=== PATIENT | female | born 1950 | race Caucasian/White ===

== ENCOUNTER → 2016-11-22 | Outpatient (CLI) | payer OTHER ==
[2016-11-22 18:28] LABS: URINE APPEARANCE CLEAR (CLEAR); URINE BILIRUBIN NEG (NEG); URINE COLOR YELLOW; URINE NITRITE NEG (NEG); URINE SPECIFIC GRAVITY 1.011 (1.000-1.030); UROBILINOGEN NEG (NEG)
[2016-11-22 18:29] LABS: MANUAL MICROSCOPIC REQUIRED? NO; REVIEW REQ? NO
== END | disposition home or self-care (01) ==
LOC: C.LABSPEC 17:53
PROVIDERS: ATTEND Family Medicine
DX: R35.0 Frequency of micturition (principal)

== ENCOUNTER → 2016-11-26 | Outpatient (CLI) | payer OTHER ==
--- NOTE | 2016-11-26 15:09 | DIAGNOSTIC IMAGING REPORT ---
EXAMINATION: PELVIC ULTRASOUND CLINICAL HISTORY: R35.0 Urinary [id number] PELVIC PAIN COMPARISON STUDY: None FINDINGS: The uterus measured 9.6 cm. Inhomogeneous myometrium with several associated calcifications. This suggestive of fibroid-type change. Well-defined and/or discrete fibroids or not easily appreciated.. The endometrial stripe measured 3 mm. The right ovary measured 1.5 cm with normal vascular flow. The left ovary measured 2.3 cm with normal vascular flow. There is no ultrasonographic evidence of ovarian torsion. It should be noted that ovarian torsion can be present with normal Doppler ultrasonographic findings. There was no evidence of pathologic free pelvic fluid. IMPRESSION: 1. Fibroid-type myometrial echogenicity with no well-defined discrete fibroid. 2. Study is otherwise negative. Electronically signed by: Naveed Hernández M.D. 11/26/2016 3:08 PM Dictated Date/Time: 11/26/2016 3:05 PM
--- NOTE | 2016-11-27 10:06 | DIAGNOSTIC IMAGING REPORT ---
EXAMINATION: PELVIC ULTRASOUND CLINICAL HISTORY: R35.0 Urinary [id number] PELVIC PAIN COMPARISON STUDY: None FINDINGS: The uterus measured 9.6 cm. Inhomogeneous myometrium with several associated calcifications. This suggestive of fibroid-type change. Well-defined and/or discrete fibroids or not easily appreciated.. The endometrial stripe measured 3 mm. The right ovary measured 1.5 cm with normal vascular flow. The left ovary measured 2.3 cm with normal vascular flow. There is no ultrasonographic evidence of ovarian torsion. It should be noted that ovarian torsion can be present with normal Doppler ultrasonographic findings. There was no evidence of pathologic free pelvic fluid. IMPRESSION: 1. Fibroid-type myometrial echogenicity with no well-defined discrete fibroid. 2. Study is otherwise negative. Electronically signed by: Naveed Hernández M.D. 11/26/2016 3:08 PM Dictated Date/Time: 11/26/2016 3:05 PM
== END | disposition home or self-care (01) ==
LOC: C.ULTR 13:24
PROVIDERS: ATTEND Family Medicine
DX: R35.0 Frequency of micturition (principal); R10.2 Pelvic and perineal pain; R93.8 Abnormal findings on diagnostic imaging of other specified body structures

== ENCOUNTER → 2017-01-29 | Outpatient (CLI) | payer OTHER ==
--- NOTE | 2017-01-29 15:43 | MAMMOGRAPHY REPORT ---
UNILATERAL RIGHT DIGITAL DIAGNOSTIC MAMMOGRAM TOMOSYNTHESIS WITH CAD: 01/29/2017 CLINICAL HISTORY: 66-year-old woman with a personal history of right breast cancer status post lumpe ctomy and radiation presents for repeat assessment of probable dystrophic calcifications near the morillo rgical site in the right upper outer quadrant. TECHNIQUE: Right CC and MLO 2-D digital and tomosynthesis images; spot magnification right CC and M L views were obtained. Current study was also evaluated with a Computer Aided Detection (CAD) juan r marin COMPARISON: Comparison is made to exams dated: 07/31/2016 mammogram, 01/24/2016 mammogram, 07/22/2015 mammogram - [facility], 07/19/2014 mammogram, 06/30/2013 mammogram, and 06/05/2011 mamm ogram - [facility]. BREAST COMPOSITION: The tissue of the right breast is almost entirely fatty. FINDINGS: A linear scar marker overlies the upper outer quadrant of the right breast, and a second s car marker overlies the right axilla, from previous lumpectomy and axillary lymph node sampling. Th ere is skin irregularity, expected architectural distortion and stable surgical clips at the site of prior surgery. There are mild vascular calcifications, benign rim calcifications and coarse, dystr ophic-appearing calcifications anterior to the surgical site and some punctate microcalcifications a long the skin of the lateral right breast. No new suspicious mass, architectural distortion or susp icious calcifications are identified. Would recommend annual bilateral mammography in July 2017, but remain a diagnostic patient for additional spot magnification views near the right surgical sit e. IMPRESSION: ACR-BI-RADS CATEGORY 3: PROBABLY BENIGN Stable mammographic appearance of the right breast including benign-appearing coarse and dystrophic calcifications near the lumpectomy bed. Follow-up bilateral mammography including right spot magnif ication views and possible ultrasound is recommended in July 2017. These results and recommendations were discussed with the patient at the time of the exam. Approximately 10% of breast cancers are not detected with mammography. A negative mammographic repor t should not delay biopsy if a clinically suggestive mass is present. Altagracia Rajput M.D. ay/:01/29/2017 14:20:10 Check Pilot: Larissa Doyle, [facility] letter sent: Follow Up Recommended 3 BI-RADS Code: ACR-BI-RADS Category 3: Probably Benign
== END | disposition home or self-care (01) ==
LOC: C.MAMM 13:20
PROVIDERS: ATTEND Surgery
DX: C50.911 Malignant neoplasm of unspecified site of right female breast (principal); R92.1 Mammographic calcification found on diagnostic imaging of breast

== ENCOUNTER → 2017-04-15 | Outpatient (CLI) | payer OTHER ==
[2017-04-15 13:37] LABS: BASO % 1.9 %; BASO ABS # 0.06 K/uL (0-0.2); COMPLETE YES; EOS % 6.4 %; HEMATOCRIT 44.2 % (37-47); LYMPH % 30.6 %; LYMPH ABS # 0.96 K/uL (1.2-3.4); MEAN CELL VOLUME 94.2 fL (80-100); MEAN CORPUSCULAR HEMOGLOBIN 31.6 pg (25-34); MEAN CORPUSCULAR HGB CONC 33.5 g/dl (32-36); MEAN PLATELET VOLUME 10.7 fL (7.4-10.4); MONO % 10.8 %; NEUT % 50.3 %; PLATELET COUNT 208 K/uL (130-400); RED BLOOD COUNT 4.69 M/uL (4.2-5.4); WHITE BLOOD COUNT 3.14 K/uL (4.8-10.8)
[2017-04-15 14:38] LABS: ESTIMATED AVERAGE GLUCOSE 126 mg/dl; HA1C FLAG Normal (Normal)
[2017-04-15 14:46] LABS: ALT/SGPT 37 U/L (12-78); BLOOD UREA NITROGEN 12 mg/dl (7-18); BUN/CREATININE RATIO 16.6 (10-20); CARBON DIOXIDE 27 mmol/L (21-32); CHLORIDE 107 mmol/L (98-107); CHOLESTEROL 138 mg/dl (0-200); CREATININE 0.74 mg/dl (0.60-1.20); GLUCOSE 98 mg/dl (70-99); POTASSIUM 4.2 mmol/L (3.5-5.1); SODIUM 142 mmol/L (136-145); TRIGLYCERIDES 63 mg/dl (0-150); VERY LOW DENSITY LIPOPROT CALC 13 mg/dl
[2017-04-15 14:57] LABS: ALB/GLOB RATIO 1.1 (0.9-2); ALKALINE PHOSPHATASE 57 U/L (45-117); AST/SGOT 22 U/L (15-37); CHOLESTEROL/HDL RATIO 1.9; HDL CHOLESTEROL 73 mg/dl; LDL CHOLESTEROL CALCULATED 52 mg/dl
--- NOTE | 2017-04-19 11:34 | CODING QUERY MEDICAL NECESSITY ---
SUPPORTING DIAGNOSIS NEEDED Dr. Hudson, A supporting diagnosis is required for the test/procedure performed on this patient in order for us to be reimbursed by the patient's insurance. Please provide a supporting diagnosis for the following test/procedure listed below next to the test name along with your signature. *If there is no additional diagnosis for this patient that would support the following test/procedure please document that below next to the test/procedure. Test(s)/Procedure(s) that require a supporting diagnosis: * [id number] GLYCATED HEMOGLOBIN DIAGNOSIS: DATE OF SERVICE: 04/15/17 Provider Signature: Date: Thank you Zi Govea [facility] Information Management Once completed, please kindly fax back to [phone] For questions please call [phone]
== END | disposition home or self-care (01) ==
LOC: C.LABMFLN 08:59
PROVIDERS: ATTEND Family Medicine
DX: R73.03 Prediabetes (principal); E03.9 Hypothyroidism, unspecified; I25.10 Atherosclerotic heart disease of native coronary artery without angina pectoris; E78.5 Hyperlipidemia, unspecified; D72.9 Disorder of white blood cells, unspecified

== ENCOUNTER → 2017-07-30 | Outpatient (CLI) | payer OTHER ==
--- NOTE | 2017-07-30 15:30 | MAMMOGRAPHY REPORT ---
BILATERAL DIGITAL DIAGNOSTIC MAMMOGRAM TOMOSYNTHESIS WITH CAD: 07/30/2017 CLINICAL HISTORY: 67-year-old woman with a personal history of right breast cancer status post lumpec francoise and radiation presents for bilateral screening mammography and also close follow-up of calcifica tions anterior to the surgical site in the right breast. TECHNIQUE: Bilateral CC and MLO 2-D and tomosynthesis images, spot magnification right CC and ML view s were obtained. Current study was also evaluated with a Computer Aided Detection (CAD) system. COMPARISON: Comparison is made to exams dated: 01/29/2017 mammogram, 07/31/2016 mammogram, 01/24/2016 ma mmogram, 07/22/2015 mammogram - [facility], 07/19/2014 mammogram, and 06/30/2013 mammog [facility]. BREAST COMPOSITION: There are scattered areas of fibroglandular density in both breasts. FINDINGS: There is expected architectural distortion and surgical clips in the upper outer posterior right breast, at the site of prior lumpectomy. There is skin irregularity and a skin fold due to harjinder delio in the upper outer middle one third of the right breast. There is a 2.7 mm grouping of round an d punctate microcalcifications anterior to the surgical site, corresponding to the skin fold on both full-field views and appears to correlate with skin on the tomosynthesis images. On the spot magnifi cation views, this grouping of calcifications is stable dating back to 07/31/2016 and probably dermal or dystrophic. However, another 12 month follow-up diagnostic mammogram including spot magnificatio n views is recommended to ensure longer stability. There are other scattered stable benign-appearing rounded rim calcifications in the breasts. Minimal vascular calcification bilaterally. No other suspicious mass, architectural distortion or cluster o f microcalcifications is seen. IMPRESSION: ACR-BI-RADS CATEGORY 3: PROBABLY BENIGN Stable mammographic appearance of the breasts including postsurgical changes in the right upper outer quadrant. A stable 2.7 mm grouping of round and punctate microcalcifications anterior to the surgic al site could correspond to skin or may represent dystrophic calcification. Overall the calcificatio ns are benign in appearance and stable on spot magnification views for 1 year. Another 12 month foll ow-up bilateral diagnostic mammogram including right spot magnification views is recommended to ensur e longer stability. These results and recommendations were discussed with the patient at the time of the exam. Approximately 10% of breast cancers are not detected with mammography. A negative mammographic report should not delay biopsy if a clinically suggestive mass is present. Altagracia Rajput M.D. ay/:07/30/2017 14:43:41 Sales Associate Cashier: Christina WOODSON(Matthew)(Jovanny), [facility] letter sent: Follow Up Recommended 3 BI-RADS Code: ACR-BI-RADS Category 3: Probably Benign
== END | disposition home or self-care (01) ==
LOC: C.MAMM 13:39
PROVIDERS: ATTEND Surgery
DX: R92.2 Inconclusive mammogram (principal); Z85.3 Personal history of malignant neoplasm of breast

== ENCOUNTER → 2018-05-20 | Outpatient (CLI) | payer OTHER ==
[2018-05-20 18:01] LABS: HEMATOCRIT 42.6 % (37-47); HEMOGLOBIN 14.4 g/dL (12.0-16.0); MEAN CELL VOLUME 94.2 fL (80-100); MEAN CORPUSCULAR HEMOGLOBIN 31.9 pg (25-34); MEAN CORPUSCULAR HGB CONC 33.8 g/dl (32-36); MEAN PLATELET VOLUME 10.7 fL (7.4-10.4); PLATELET COUNT 223 K/uL (130-400); RED CELL DISTRIBUTION WIDTH CV 12.2 % (11.5-14.5); RED CELL DISTRIBUTION WIDTH SD 41.9 fL (36.4-46.3); WHITE BLOOD COUNT 4.24 K/uL (4.8-10.8)
[2018-05-21 05:52] LABS: HEMOGLOBIN A1C 5.8 % (4.5-5.6)
== END | disposition home or self-care (01) ==
LOC: C.LABMFLN 12:40
PROVIDERS: ATTEND Physician Assistant
DX: I25.10 Atherosclerotic heart disease of native coronary artery without angina pectoris (principal); R73.03 Prediabetes